=== PATIENT | female | born 2000 | race Caucasian/White ===

== ENCOUNTER 2018-12-24 14:36 | Emergency (ER) | payer OTHER ==
--- NOTE | 2018-12-24 15:03 | PHYS DOC ---
Past History Past Medical History: Other Additional Past Medical Histor: seasonal allergies Past Surgical History: No Surgical History Smoking: Non-smoker Alcohol Use: None Drug Use: None Adult General Chief Complaint Chief Complaint: KNEE INJURY HPI HPI Patient is a 18-year-old female presents with right knee pain after a mechanical trip and fall at approximately 840 this morning. She has been able to walk on it . No significant improvement with naproxen. Increased pain with movement. At worst the pain as a 5 out of 10. No numbness or tingling. No previous history of knee injury.[] Review of Systems Review of Systems Constitutional: Denies fever or chills [] Eyes: Denies change in visual acuity, redness, or eye pain [] HENT: Denies nasal congestion or sore throat [] Respiratory: Denies cough or shortness of breath [] Cardiovascular: No chest pain or palpitations[] GI: Denies abdominal pain, nausea, vomiting, bloody stools or diarrhea [] : Denies dysuria or hematuria [] Musculoskeletal: Denies back pain, see history of present illness[] Integument: Denies rash or skin lesions [] Neurologic: Denies headache, focal weakness or sensory changes [] Endocrine: Denies polyuria or polydipsia [] All other systems were reviewed and found to be within normal limits, except as documented in this note. Physical Exam Physical Exam Constitutional: Well developed, well nourished, no acute distress, non-toxic appearance. [] HENT: Normocephalic, atraumatic, bilateral external ears normal, oropharynx moist, no oral exudates, nose normal. [] Eyes: PERRLA, EOMI, conjunctiva normal, no discharge. [] Neck: Normal range of motion, no tenderness, supple, no stridor. [] Cardiovascular:Heart rate regular rhythm, no murmur [] Lungs & Thorax: Bilateral breath sounds clear to auscultation [] Abdomen: Bowel sounds normal, soft, no tenderness, no masses, no pulsatile masses. [] Skin: Warm, dry, no erythema, no rash. [] Back: No tenderness, no CVA tenderness. [] Extremities: Right knee: No erythema, edema, or effusion. Abrasion over the patella. Full active range of motion. Tenderness to palpation diffusely. No varus or valgus laxity. Negative drawer, negative Jose test. A joint above and a joined below were evaluated and were normal. Patient is distally neurovascularly intact. The other 3 extremities show: No tenderness, no cyanosis, no clubbing, ROM intact, no edema. [] Neurologic: Alert and oriented X 3, normal motor function, normal sensory function, no focal deficits noted. [] Psychologic: Affect normal, judgement normal, mood normal. [] EKG EKG [] Radiology/Procedures Radiology/Procedures PROCEDURE: KNEE RIGHT 3V Examination: KNEE RIGHT 3V History: Right knee pain after fall today Comparison/Correlation: None Findings: Total 3 images the right knee were obtained. Joint spaces are normal. No acute fracture or bony destruction. Soft tissues are unremarkable. Growth plates are is noted. No joint effusion. Impression: Normal three-view right knee x-ray exam. [] Course & Med Decision Making Course & Med Decision Making Pertinent Labs and Imaging studies reviewed. (See chart for details) ED course: Patient arrived, was placed in bed, and tolerated exam well. She was transferred to and from radiology with any complications. After return of the imaging findings, these were discussed with the patient voiced understanding. All questions were answered. She was discharged in improved condition. Medical decision making: There is no evidence of a fracture or dislocation. No evidence of significant ligamentous injury. No evidence of meniscus injury. No evidence of neurologic or vascular compromise.[] Dragon Disclaimer Dragon Disclaimer This electronic medical record was generated, in whole or in part, using a voice recognition dictation system. Departure Departure: Impression: Primary Impression: Right knee injury Disposition: HOME, SELF-CARE Condition: IMPROVED Referrals: PCP,NO (PCP) Patient Instructions: Knee Exercises, Generic, SportsMed, Knee Pain Additional Instructions: Follow-up with your regular physician or Worker's Compensation physician in 2 days. Take the medication as prescribed. Return to the ER if worsening pain, weakness, or any other concerns. Scripts Meloxicam (MELOXICAM) 7.5 Mg Tablet 7.5 MG PO DAILY for PAIN, #20 TAB Prov: ROMANA DEGROOT DO 12/24/18 Problem Qualifiers Primary Impression: Right knee injury Encounter type: initial encounter Qualified Codes: S89.91XA - Unspecified injury of right lower leg, initial encounter ROMANA DEGROOT DO Dec 24, 2018 15:03
[2018-12-24 15:08] VITALS: BP 159/83
--- NOTE | 2018-12-24 15:12 | RAD ---
Examination: KNEE RIGHT 3V History: Right knee pain after fall today Comparison/Correlation: None Findings: Total 3 images the right knee were obtained. Joint spaces are normal. No acute fracture or bony destruction. Soft tissues are unremarkable. Growth plates are is noted. No joint effusion. Impression: Normal three-view right knee x-ray exam. Electronically signed by: Manan Infante MD (12/24/2018 3:09 PM) [facility]
[2018-12-24] MEDS ORDERED: MELO7.5T29 PO (15:22)
== END 2018-12-24 15:50 | disposition home or self-care (01) ==
LOC: ER 14:36
DX: S80.211A Abrasion, right knee, initial encounter (principal); W01.0XXA Fall on same level from slipping, tripping and stumbling without subsequent striking against object, initial encounter; Y93.89 Activity, other specified; Y92.89 Other specified places as the place of occurrence of the external cause; Y99.8 Other external cause status
CPT/HCPCS: 73562; 99284